=== PATIENT | female | born 1950 | race Caucasian/White ===

== ENCOUNTER 2022-04-08 15:12 | Emergency (ER) | payer MEDICARE, OTHER ==
[~2022-04-08 15:12] MED LIST: VIBRAMYCIN100 MG PO
== END 2022-04-08 17:15 | disposition home or self-care (01) ==
LOC: ER1 15:12
DX: S61.210A Laceration without foreign body of right index finger without damage to nail, initial encounter (principal); I11.9 Hypertensive heart disease without heart failure; Z23 Encounter for immunization; W26.0XXA Contact with knife, initial encounter; Y92.009 Unspecified place in unspecified non-institutional (private) residence as the place of occurrence of the external cause
CPT/HCPCS: 12001; 90471; 90715; 99282